=== PATIENT | female | born 1945 | race Caucasian/White ===

== ENCOUNTER 2021-07-07 11:47 | Emergency (ER) | payer BC ==
[~2021-07-07] VITALS: Ht 157.5 cm; Wt 71.7 kg
[2021-07-07 12:15] LABS: HEMATOCRIT 43.3 % (31.2-41.9); MEAN CORPUSCULAR HEMOGLOBIN 30.1 uug (24.7-32.8); MEAN CORPUSCULAR VOLUME 88.8 fL (75.5-95.3); PLATELET COUNT (AUTO) 313 K/uL (179-408)
[2021-07-07 12:31] LABS: CREATININE 0.7 mg/dL (0.6-1.3); POTASSIUM 2.8 mmol/L (3.5-5.1)
[2021-07-07 12:43] LABS: THYROID STIMULATING HORMONE 0.774 mIU/mL (0.358-3.740)
[2021-07-07 13:07] LABS: BILIRUBIN,TOTAL 0.6 mg/dL (0.2-1.0)
[2021-07-07 13:08] LABS: TOTAL PROTEIN, SERUM 7.9 g/dL (6.4-8.2)
[2021-07-07] MEDS: POTASSIUM CHLORIDE 20 MEQ TAB.PRT.SR PO ONE (13:40)
[2021-07-07] MEDS ORDERED: POTASSIUM CHLORIDE 20 MEQ TAB.PRT.SR ONE (13:43)
[2021-07-07 14:03] LABS: *BILIRUBIN,URIN NEGATIVE (NEGATIVE); *COLOR,URINE YELLOW (YELLOW); *KETONES,URINE 1+ (NEGATIVE); *UROBILINOGEN,URINE 0.2 E.U./dl (NORMAL); LEUKOCYTE ESTERASE ,URINE 1+ (NEGATIVE); NITRITE, URINE NEGATIVE (NEGATIVE); PH,URINE 5.5 (5.0-8.0); UGLUCOSE NEGATIVE (NEGATIVE)
[2021-07-07 14:11] LABS: *BLOOD, URINE TRACE (NEGATIVE)
[2021-07-07 14:13] LABS: *CLARITY,URINE CLOUDY (CLEAR); BACTERIA,URINE MANY /HPF (NONE SEEN); WBC,URINE 20-50 /HPF (0-3)
[2021-07-07 14:14] LABS: SQUAMOUS EPITHELIAL CELL,UR MODERATE /HPF (NONE SEEN)
[2021-07-07] MEDS ORDERED: CEPH500C2 PO (14:31)
[2021-07-07] MEDS: HYDROCODONE/APAP 5-325MG TABLET PO ONE (14:45)
[2021-07-07] MEDS ORDERED: HYDROCODONE/APAP 5-325MG TABLET ONE (14:51)
--- NOTE | 2021-07-07 14:55 | NUR ---
Dr. Carter and Nurse Mendoza monitored patient's condition. Discussed plans of care while in the ED; and diagnostic examinations completed. Patient's prepared for discharge and educated on discharge plans and medications; as well as diagnosis. Patient agreed to follow-up with primary doctor. For discharge.
[2021-07-07 15:23] VITALS: BP 126/64
== END 2021-07-07 15:01 | disposition home or self-care (01) ==
LOC: ER 11:49
DX: N39.0 Urinary tract infection, site not specified (principal); E89.0 Postprocedural hypothyroidism; K21.9 Gastro-esophageal reflux disease without esophagitis; G89.29 Other chronic pain; M54.50 Low back pain, unspecified; Z79.899 Other long term (current) drug therapy
CPT/HCPCS: 36415; 70030-TC; 83690; 84443; 85025; 87077; 87086; 93005; A4663